=== PATIENT | male | born 1985 | race American Indian/Alaskan Native ===

== ENCOUNTER 2017-07-23 10:04 | Outpatient (CLI) | payer MEDICAID ==
[2017-07-23] MEDS ORDERED: XYLOCAINE TOPICAL 4% TP ONE (10:35)
== END 2017-07-23 10:05 | disposition home or self-care (01) ==
LOC: WOUND 10:04
PROVIDERS: ATTEND Internal Medicine
DX: L89.224 Pressure ulcer of left hip, stage 4 (principal); G82.21 Paraplegia, complete; I10 Essential (primary) hypertension; F20.5 Residual schizophrenia; M86.38 Chronic multifocal osteomyelitis, other site; F17.200 Nicotine dependence, unspecified, uncomplicated; F12.90 Cannabis use, unspecified, uncomplicated
CPT/HCPCS: 11042; 11045; G0463

== ENCOUNTER 2017-08-13 12:04 | Outpatient (CLI) | payer MEDICAID ==
[2017-08-13] MEDS ORDERED: XYLOCAINE TOPICAL 4% TP ONE ×2 (12:11→12:15)
== END 2017-08-13 12:05 | disposition home or self-care (01) ==
LOC: WOUND 12:04
PROVIDERS: ATTEND Internal Medicine
DX: L89.224 Pressure ulcer of left hip, stage 4 (principal); G82.21 Paraplegia, complete; I10 Essential (primary) hypertension; F20.5 Residual schizophrenia; M86.38 Chronic multifocal osteomyelitis, other site; F17.200 Nicotine dependence, unspecified, uncomplicated; F12.90 Cannabis use, unspecified, uncomplicated